=== PATIENT | female | born 1985 | race Caucasian/White ===

== ENCOUNTER 2016-08-07 22:43 | Emergency (ER) | payer MEDICAID ==
[~2016-08-07] VITALS: Ht 160 cm; Wt 67.6 kg
[2016-08-07] MEDS ORDERED: TRAMADOL HCL 50 MG TABLET PO ONE (23:45)
--- NOTE | 2016-08-08 00:06 | NUR ---
Patient discharged to home in stable conditon. Written and verbal after care instructions given. Patient verbalizes understanding of instructions.
[2016-08-08] MEDS ORDERED: TRAMADOL HCL 50 MG TABLET ONE (00:09)
== END 2016-08-08 00:08 | disposition home or self-care (01) ==
LOC: ER 22:50
DX: G56.01 Carpal tunnel syndrome, right upper limb (principal); M54.9 Dorsalgia, unspecified
CPT/HCPCS: A4663